=== PATIENT | male | born 1995 | race Caucasian/White ===

== ENCOUNTER 2017-11-13 14:45 | Inpatient (IN) | payer OTHER ==
[~2017-11-13] VITALS: Ht 170.2 cm; Wt 74.0 kg
--- NOTE | 2017-11-13 15:38 | EMERGENCY ROOM VISIT NOTE ---
History Report prepared by [place]: Heidi Torrez Under the Supervision of: Dr. Solomon Nam M.D. First contact with patient: 15:09 Chief Complaint: MENTAL HEALTH EVALUATION Stated Complaint: MR History of Present Illness The patient is a 22 year old male who presents to the Emergency Room for a mental health evaluation, secondary to the patient admitting to having persistent suicidal ideations earlier today. The patient states that he has been feeling unhappy lately and has been experiencing dark thoughts. He notes that he had a traumatic past and his mother encouraged him to go to [facility] to receive counseling. He denies ever being hospitalized, this includes for depressive or abnormal behaviors. The patient states that he has been hearing voices that have been telling him to hurt himself and others, noting he does not have an urge to hurt anyone when he does not hear these voices. He reports that he began hearing these voices about a year ago, noting he smoked a high amount of marijuana and felt like the room faded. During this episode, the patient felt like he was sitting in a dark room alone with a voice that mentioned the Bible. He denies any pain or flu like symptoms. Per [facility], the patient was making accusations of being the Messiah and wanting to crucify himself. Source of History: patient Onset: today Position: other (mental) Quality: other (suicidal ideations) Timing: other (persistent) Note: Associated symptoms include: auditory hallucinations. Review of Systems See HPI for pertinent positives and negatives. A total of ten systems were reviewed and were otherwise negative. Past Medical & Surgical Medical Problems: (1) Auditory hallucination Family History FH: bipolar disorder Social History Smoking Status: Never Smoker Smokeless Tobacco Use: Unknown Alcohol Use: none Drug Use: marijuana Marital Status: single Housing Status: lives with roommate Occupation Status: [employer] student Current/Historical Medications No Active Prescriptions or Reported Meds Allergies Coded Allergies: No Known Allergies (Unverified , 11/13/17) Physical Exam Vital Signs Date Time Temp Pulse Resp B/P (MAP) Pulse Ox O2 Delivery O2 Flow Rate FiO2 11/13/17 22:13 77 16 128/70 100 Room Air 11/13/17 16:38 64 16 146/78 100 Room Air 11/13/17 14:51 37.0 70 16 146/85 99 Room Air Physical Exam GENERAL: Flat depressed affect. Poor eye contact. Awake, alert, well-appearing, in no distress HENT: Normocephalic, atraumatic. Oropharynx unremarkable. EYES: Normal conjunctiva. Sclera non-icteric. NECK: Supple. No nuchal rigidity. FROM. No JVD. RESPIRATORY: Clear to auscultation. CARDIAC: Regular rate, normal rhythm. Extremities warm and well perfused. Pulses equal. ABDOMEN: Soft, non-distended. No tenderness to palpation. No rebound or guarding. No masses. RECTAL: Deferred. MUSCULOSKELETAL: Chest examination reveals no tenderness. The back is symmetrical on inspection without obvious abnormality. There is no CVA tenderness to palpation. No joint edema. LOWER EXTREMITIES: Calves are equal size bilaterally and non-tender. No edema. No discoloration. NEURO: Normal sensorium. No sensory or motor deficits noted. Normal cerebellar function with [id number]. SKIN: No rash or jaundice noted. PSYCH: positive auditory commanding hallucinations and suicidal ideations and homicidal ideations Medical Decision & Procedures Laboratory Results 11/13/17 15:51 Red Blood Count 4.98, Mean Corpuscular Volume 85.3, Mean Corpuscular Hemoglobin 30.9, Mean Corpuscular Hemoglobin Concent 36.2, Mean Platelet Volume 8.9, Neutrophils (%) (Auto) 84.1, Lymphocytes (%) (Auto) 10.7, Monocytes (%) (Auto) 4.5, Eosinophils (%) (Auto) 0.1, Basophils (%) (Auto) 0.3, Neutrophils # (Auto) 9.49, Lymphocytes # (Auto) 1.21, Monocytes # (Auto) 0.51, Eosinophils # (Auto) 0.01, Basophils # (Auto) 0.03 11/13/17 15:51 Test 11/13/17 15:51 11/13/17 16:28 White Blood Count 11.28 K/uL (4.8-10.8) Red Blood Count 4.98 M/uL (4.7-6.1) Hemoglobin 15.4 g/dL (14.0-18.0) Hematocrit 42.5 % (42-52) Mean Corpuscular Volume 85.3 fL (80-100) Mean Corpuscular Hemoglobin 30.9 pg (25-34) Mean Corpuscular Hemoglobin Concent 36.2 g/dl (32-36) Platelet Count 278 K/uL (130-400) Mean Platelet Volume 8.9 fL (7.4-10.4) Neutrophils (%) (Auto) 84.1 % Lymphocytes (%) (Auto) 10.7 % Monocytes (%) (Auto) 4.5 % Eosinophils (%) (Auto) 0.1 % Basophils (%) (Auto) 0.3 % Neutrophils # (Auto) 9.49 K/uL (1.4-6.5) Lymphocytes # (Auto) 1.21 K/uL (1.2-3.4) Monocytes # (Auto) 0.51 K/uL (0.11-0.59) Eosinophils # (Auto) 0.01 K/uL (0-0.5) Basophils # (Auto) 0.03 K/uL (0-0.2) RDW Standard Deviation 38.7 fL (36.4-46.3) RDW Coefficient of Variation 12.4 % (11.5-14.5) Immature Granulocyte % (Auto) 0.3 % Immature Granulocyte # (Auto) 0.03 K/uL (0.00-0.02) Anion Gap 8.0 mmol/L (3-11) Est Creatinine Clear Calc Drug Dose 109.3 ml/min Estimated GFR () 124.1 Estimated GFR (Non- 107.1 BUN/Creatinine Ratio 13.0 (10-20) Calcium Level 9.4 mg/dl (8.5-10.1) Total Bilirubin 0.7 mg/dl (0.2-1) Direct Bilirubin 0.2 mg/dl (0-0.2) Aspartate Amino Transf (AST/SGOT) 22 U/L (15-37) Alanine Aminotransferase (ALT/SGPT) 22 U/L (12-78) Alkaline Phosphatase 51 U/L (45-117) Total Protein 7.9 gm/dl (6.4-8.2) Albumin 4.7 gm/dl (3.4-5.0) Globulin 3.2 gm/dl (2.5-4.0) Albumin/Globulin Ratio 1.5 (0.9-2) Thyroid Stimulating Hormone (TSH) 1.050 uIu/ml (0.300-4.500) Ethyl Alcohol mg/dL < 3.0 mg/dl (0-3) Urine Color YELLOW Urine Appearance CLEAR (CLEAR) Urine pH 8.0 (4.5-7.5) Urine Specific [place] 1.009 (1.000-1.030) Urine Protein NEG (NEG) Urine Glucose (UA) NEG (NEG) Urine Ketones NEG (NEG) Urine Occult Blood NEG (NEG) Urine Nitrite NEG (NEG) Urine Bilirubin NEG (NEG) Urine Urobilinogen NEG (NEG) Urine Leukocyte Esterase NEG (NEG) Urine Opiates Screen NEG (NEG) Urine Methadone, Qualitative NEG (NEG) Urine Barbiturates NEG (NEG) Urine Phencyclidine (PCP) Level NEG (NEG) Ur Amphetamine/Methamphetamine NEG (NEG) MDMA (Ecstasy) Screen NEG (NEG) Urine Benzodiazepines Screen NEG (NEG) Urine Cocaine Metabolite NEG (NEG) Urine Marijuana (THC) POS (NEG) Laboratory results reviewed by nv ED Course 151: The patient was evaluated in room A6. A complete history and physical exam was performed. 2114: Currently bed searching for the patient. Medical Decision I reviewed the patient's past medical history, medications, and the nursing notes as described above. Differential diagnosis: Etiologies such as mood disorder, infection, hypoglycemia, electrolyte abnormalities, cardiac sources, intracerebral event, toxicologic, neurologic, as well as others were entertained. The patient is a 22-year-old gentleman who presents emergency department referred by [facility] for command auditory hallucinations and delusions where he believed he is the [facility] per HPI. On arrival the patient has a flat affect with poor eye contact but otherwise in no acute distress, afebrile with stable vital signs. She denies any medical complaints. He does smoke marijuana daily but denies any alcohol or drug use otherwise. I discussed with the patient's report of his auditory hallucinations and he confirms that he has been having these command hallucinations which tell him to hurt himself and others since [place] break and while he feels that they have diminished in frequency they are still present. Moreover, the patient attributes the onset of his "lack of happiness" to a moment last year when he felt he first heard a voice telling him that he was not following the Bible." Labs unremarkable. Patient was medically cleared. 302 petition from [facility] however patient is willing to be admitted voluntarily. Thus 201 pending bed search to confirmed admission. If patient changes his mind and attempts to leave, a 302 should be finalized. Patient signed out to Dr. Rand with bed search pending. Medication Reconcilliation Current Medication List: was personally reviewed by me Blood Pressure Screening Patient's blood pressure: Normal blood pressure Blood pressure disposition: Did not require urgent referral Impression Primary Impression: Severe auditory hallucinations Additional Impression: Delusions Scribe Attestation The scribe's documentation has been prepared under my direction and personally reviewed by me in its entirety. I confirm that the note above accurately reflects all work, treatment, procedures, and medical decision making performed by me. Departure Information Dispostion Still a Patient Prescriptions No Active Prescriptions or Reported Meds Referrals No Doctor, Assigned (PCP) Forms HOME CARE DOCUMENTATION FORM, IMPORTANT VISIT INFORMATION Patient Instructions My [facility] Problem Qualifiers
[2017-11-13 16:13] LABS: BASO % 0.3 %; BASO ABS # 0.03 K/uL (0-0.2); EOS % 0.1 %; EOS ABS # 0.01 K/uL (0-0.5); HEMATOCRIT 42.5 % (42-52); HEMOGLOBIN 15.4 g/dL (14.0-18.0); IG# 0.03 K/uL (0.00-0.02); LYMPH % 10.7 %; LYMPH ABS # 1.21 K/uL (1.2-3.4); MEAN CELL VOLUME 85.3 fL (80-100); MEAN CORPUSCULAR HEMOGLOBIN 30.9 pg (25-34); MEAN CORPUSCULAR HGB CONC 36.2 g/dl (32-36); MEAN PLATELET VOLUME 8.9 fL (7.4-10.4); MONO % 4.5 %; MONO ABS # 0.51 K/uL (0.11-0.59); NEUT % 84.1 %; NEUT ABS # 9.49 K/uL (1.4-6.5); PLATELET COUNT 278 K/uL (130-400); RED CELL DISTRIBUTION WIDTH CV 12.4 % (11.5-14.5); RED CELL DISTRIBUTION WIDTH SD 38.7 fL (36.4-46.3); WHITE BLOOD COUNT 11.28 K/uL (4.8-10.8)
[2017-11-13 16:33] LABS: ALBUMIN 4.7 gm/dl (3.4-5.0); CALCIUM 9.4 mg/dl (8.5-10.1); POTASSIUM 3.6 mmol/L (3.5-5.1)
[2017-11-13 16:44] LABS: TOTAL PROTEIN 7.9 gm/dl (6.4-8.2)
--- NOTE | 2017-11-14 07:36 | EMERGENCY ROOM VISIT NOTE ---
ED Visit Note First contact with patient: 23:17 22 yr old male arrives with command hallucinations being told to harm others evaluated by Dr Nam and medically cleared. Patient with 302 petition though he is willing to go inpatient. Working on puzzle throughout the morning. No am medications. Stable and signed out to Dr Del Real awaiting placement.
[2017-11-14 08:19] VITALS: O2SAT 99
--- NOTE | 2017-11-14 10:11 | Psychiatric Progress Notes ---
Psychiatric Progress Note Date of Service Nov 14, 2017. Notes Case discussed with liaison nurse, and records reviewed, as patient has been in the emergency room overnight awaiting placement in an inpatient psychiatric facility, as no male beds available at this facility. Patient presented yesterday with suicidal ideation and auditory hallucinations telling him to harm himself and others, drug screen positive for cannabis. He was seen at [facility] and then brought in by police. [facility] was contacted and said that he endorsed commands to crucify himself, was hearing the voice of God telling him he was Shoaib Ricardo, and would need to kill everyone he loved including himself. He has no home medications, and labs were unremarkable with the exception of the positive drug screen. He has not received any medications in the emergency room, and has been cooperative with care. Recommendations: 1. Psychosis NOS: May utilize risperidone 1 mg as needed for psychosis. Patient clearly in need of inpatient psychiatric care, and bed search is continuing today. There are 302 petitions on the chart per records, in the event that he is no longer willing for voluntary admission.
--- NOTE | 2017-11-14 12:59 | EMERGENCY ROOM VISIT NOTE ---
ED Visit Note First contact with patient: 07:33 Patient is a 22-year-old male that is hearing voices instructing him to kill people. Patient was signed out to be medically cleared by Dr. Rand. Patient was agreeable to a 201 and was accepted to 3 S. He was resting comfortably putting together a puzzle on repeat evaluations.
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
[2017-11-14 14:40] VITALS: BP 127/82; PULSE 55; TEMP 36.9; Ht 170.2 cm; Wt 74.0 kg
[2017-11-14] MEDS ORDERED: hydrOXYzine HCL 25 MG TAB PO PRN ×2 (14:45)
[2017-11-14] MEDS ORDERED: BISMUTH SUBSALICYLATE PER ML OMNICELL CHARGE PO PRN (14:45)
[2017-11-14] MEDS ORDERED: MAGNESIUM HYDROXIDE SUSP 30 ML UDC PO PRN (14:45)
[2017-11-14] MEDS ORDERED: SODIUM CHLORIDE 0.65% NA SOLN 45 ML (OCEAN) PRN (14:45)
[2017-11-14] MEDS ORDERED: ACETAMINOPHEN 325 MG TAB PO PRN (14:45)
[2017-11-14] MEDS ORDERED: ALUMINUM/MAGNESIUM SUSP 30 ML UDC PO PRN (14:45)
[2017-11-14] MEDS: LITHIUM CARBONATE SR 300 MG TAB (LITHOBID) PO SCH ×2 (15:38→19:52)
[2017-11-14] MEDS ORDERED: LITHIUM CARBONATE SR 300 MG TAB (LITHOBID) PO ONE (18:00)
[2017-11-15 07:01] VITALS: BP_SYST 125; BP_SYST 129; BP_DIAS 69; PULSE 42; PULSE 67; TEMP 36.3
--- NOTE | 2017-11-15 10:44 | Psychiatric Progress Notes ---
Progress Note Date of Service Nov 15, 2017. Interval History 22-year-old [employer] student admitted voluntarily after presenting to the emergency department at the recommendation of [facility] due to severe depression following what may have been a manic episode. Chief Complaint "I think its slowing me down.". Subjective Patient was seen & assessed interval progress reviewed with Treatment Team. The patient says that he tolerated the lithium loading last evening without side effects. Level today is 1.0. He feels that his thoughts are slower and he doesn't feel like he has to try to express things all at once. He is rating his mood 4.5 out of 10 today, and denies SI, denies aud/vis hallucinations. He asks questions about medicines in the event lithium doesn't work and we reviewed that Abilify (medications that father has done well on) could be added to or in lieu of lithium later if lithium ineffective. He is adjusting to the unit, getting along with his peers. Spoke with his mother by phone, she will be coming to visit tomorrow to bring belongings and likely for a meeting. He has asked her to bring his father as well so they can both be in attendance. Review of Systems Constitutional: No fever, No chills, No sweats, No weight loss, No weakness, No fatigue, No problem reported ENT: No hearing loss, No unusual epistaxis, No nasal symptoms, No sore throat, No tinnitus, No dental problems, No trouble swallowing, No problem reported Respiratory: No cough, No sputum, No wheezing, No shortness of breath, No dyspnea on exertion, No dyspnea at rest, No hemoptysis, No problem reported Cardiovascular: No chest pain, No orthopnea, No PND, No edema, No claudication , No palpitations, No problem reported Abdomen: No pain, No nausea, No vomiting, No diarrhea, No constipation, No GI bleeding, No problem reported Musculoskeletal: No joint pain, No muscle pain, No swelling, No calf pain, No problem reported Psychiatric: + depression symptoms Integumentary: No rash, No itch, No new/changing skin lesions, No color change , No bleeding, No problem reported Sleep Information Total Hours of Sleep: 5.50 Meal Information Percent of Breakfast Consumed: 80 Percent of Dinner Consumed: 100 Mental Status Exam During interview pt is: alert and oriented, cooperative Appearance: appropriately dressed, appropriately groomed Eye contact is: fair Motor behavior is: steady gait & station, no abnormal motor movements Speech: normal in rate, rhythm & volume Affect: mood congruent, depressed, flat Mood is: depressed Thought process: goal directed Thought content: reality based without delusions Suicidal thought are: denied Homicidal thoughts are: denied Hallucinations: denies auditory, denies visual Cognition: memory grossly intact, attention grossly intact, language grossly intact Intelligence estimated to be: average Insight: impaired Judgement: impaired Impression tolerated loading of lithium with resulting level of 1.0. Will order lithobid 900 mg. HS for maintenance with another level in 5 days. Will have family meeting tomorrow. Plan (1) Bipolar disorder, current episode depressed, severe, without psychotic features 11/14 - The patient has just returned to the office and is now willing for a trial of lithium which we will load tonight with 600 mg at 4 and 8 PM, 900 mg at 6 PM with a level in the a.m. Risks, benefits, alternatives were reviewed and discussed. He has been educated about the need for levels, risk for weight gain , cardiac irritability. - Will run baseline EKG - Father has been on Abilify, Lexapro and Depakote with success - Family meeting if indicated - Every 15 minute checks for safety - Encourage participation in group and individual counseling -The patient will need psychiatric aftercare - The patient is currently ambivalent about school as he has not been attending classes for the last month. Coordinate with the office of student care and advocacy as needed - Obtain supplemental information from family regarding any history that would support a bipolar diagnosis. 11/15 - Level 1.0. - Start maintenance lithobid 900 mg HS - EKG WNL - Family meeting tomorrow (2) Cannabis use disorder, mild, abuse 11/14 - Recommend abstinence Dr. Alem Crabtree is personally been involved in review of the above case and development of these recommendations. Discharge / Aftercare Planning Therapist: Name: None Habilitative Interventionist: Name: None Visit Code E&M Code: 93975 Inventory Assets Strengths: Intelligence, spirituality Needs: To abstain from smoking weed Risk Factors Assessment Male: Yes : Yes /single/: Yes Higher / Fall in social status: No Health problems: No Mental Health Diagnoses: No Substance use disorders: Yes Previous attempt: No Previous psychiatric stay: No Hopelessness: No Smoker: Yes Protective Factors Assessment Confucianism beliefs: Yes : No Responsible for young children: No Employed: Yes Data Vital Signs Last 24 Hrs: Date Time Temp Pulse Resp B/P (MAP) Pulse Ox O2 Delivery O2 Flow Rate FiO2 11/15/17 07:01 36.3 42 16 125/69 67 129/69 11/14/17 14:40 36.9 55 14 127/82 Meds Administered Last 24 Hrs: Meds Administered (Past 24Hrs) Medications (Trade) Dose Ordered Sig/Issa Route Start Time Stop Time Status Last Admin Dose Admin [place] Carbonate (Lithobid Tab) 600 mg TODAY@1600,2000 PO 11/14/17 16:00 11/14/17 20:01 DC 11/14/17 19:52 600 MG [place] Carbonate (Lithobid Tab) 900 mg TODAY@1800 ONCE PO 11/14/17 18:00 11/14/17 18:01 DC 11/14/17 17:54 900 MG Lab Results Last 24 Hrs: Last 24 Hours Test 11/15/17 07:52 [place] Level 1.0 mMOL/L
[2017-11-15] MEDS: NICOTINE POLACRILEX 2 MG GUM MT PRN (14:54)
[2017-11-15] MEDS: LITHIUM CARBONATE SR 300 MG TAB (LITHOBID) PO SCH (21:04)
[2017-11-16 07:00] VITALS: BP_SYST 110; BP_SYST 113; BP_DIAS 62; BP_DIAS 64; PULSE 45; PULSE 71; TEMP 36.3
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
[2017-11-16] MEDS: NICOTINE POLACRILEX 2 MG GUM MT PRN (09:15)
[2017-11-16] MEDS: LITHIUM CARBONATE SR 300 MG TAB (LITHOBID) PO SCH (21:22)
[2017-11-17 06:56] VITALS: BP_SYST 117; BP_SYST 122; BP_DIAS 57; BP_DIAS 67; PULSE 43; PULSE 59; TEMP 36.6
[2017-11-17] MEDS: NICOTINE POLACRILEX 2 MG GUM MT PRN (10:54)
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
--- NOTE | 2017-11-17 12:35 | Psych Management Progress Note ---
Psychiatry Miscellaneous Date of Service: Nov 17, 2017. Patient seen, MS assessed. Rates mood as 6/10 and upset about LOS on tx plan. Encouraged cooperation with care and treatment plan as outlined by allied health prescriber.
[2017-11-17] MEDS: LITHIUM CARBONATE SR 300 MG TAB (LITHOBID) PO SCH (22:07)
[2017-11-18 06:45] VITALS: BP_SYST 110; BP_SYST 96; BP_DIAS 62; BP_DIAS 65; PULSE 48; PULSE 74; TEMP 36.5
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
[2017-11-18] MEDS: NICOTINE POLACRILEX 2 MG GUM MT PRN (13:44)
[2017-11-18] MEDS: LITHIUM CARBONATE SR 300 MG TAB (LITHOBID) PO SCH (21:31)
[2017-11-19 06:43] VITALS: BP_SYST 105; BP_SYST 110; BP_DIAS 69; BP_DIAS 72; PULSE 53; PULSE 55; TEMP 36.6
[2017-11-19] MEDS ORDERED: LTHCR300 PO (08:03)
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
== END 2017-11-19 10:44 | disposition home or self-care (01) | DRG 885 ==
LOC: C.EDB 14:47 → C.MHU 11-14 13:20
PROVIDERS: ADMIT Psychiatry & Neurology Psychiatry; ATTEND Psychiatry & Neurology Psychiatry
DX: F31.4 Bipolar disorder, current episode depressed, severe, without psychotic features (principal); R45.851 Suicidal ideations; F12.10 Cannabis abuse, uncomplicated; Z81.8 Family history of other mental and behavioral disorders; Z81.1 Family history of alcohol abuse and dependence; Z62.810 Personal history of physical and sexual abuse in childhood